=== PATIENT | male | born 1990 | race Caucasian/White ===

== ENCOUNTER → 2025-01-18 08:19 | Outpatient (BNVA) | payer BC, SELFPAY | PROVIDERS: PCP Nurse Practitioner Family; Visit Provider Nurse Practitioner Family | DX: E11.9 Type 2 diabetes mellitus without complications (principal); Z79.4 Long term (current) use of insulin; Z98.84 Bariatric surgery status | CPT/HCPCS: 80053; 80061; 81003; 82306; 83036; 83735; 84100; 84443; 85025 ==